=== PATIENT | female | born 2000 | race Caucasian/White ===

== ENCOUNTER 2025-02-13 16:35 | Emergency (ER) | payer MEDICAID, SELFPAY | END 2025-02-13 17:59 | disposition home or self-care (01) | LOC: CSHERS 16:35 | DX: S83.92XA Sprain of unspecified site of left knee, initial encounter (principal); W19.XXXA Unspecified fall, initial encounter; Y92.009 Unspecified place in unspecified non-institutional (private) residence as the place of occurrence of the external cause | CPT/HCPCS: 99283 ==